=== PATIENT | male | born 1990 | race African-American/Black ===

== ENCOUNTER 2023-03-24 12:35 | Inpatient (IN) | payer OTHER ==
[~2023-03-24] VITALS: Ht 175.3 cm; Wt 73.2 kg
[2023-03-24 13:23] VITALS: BP 134/94; PULSE 76; RESP 15; TEMP 97.9; O2SAT 98
[2023-03-24 14:00] VITALS: BP 135/87; PULSE 68; RESP 15; TEMP 98; O2SAT 98
[2023-03-24] MEDS ORDERED: ONDANSETRON HCL 4 MG/2 ML VIAL IV PRN (15:15)
[2023-03-24 16:03] LABS: Basophils # (auto) 0 10 ^3/uL (0-0.2); Eosinophils # (auto) 0.1 10 ^3/uL (0-0.8); Hematocrit 40.8 % (41.0-53.0); Hemoglobin 13.7 g/dL (13.5-17.5); Lymphocytes # (auto) 1.2 10 ^3/uL (0.4-5.4); Lymphocytes % (auto) 25.6 % (10.0-50.0); Mean Corpuscular Hemoglobin 32.7 pg (28.0-32.0); Mean Corpuscular Hgb Conc. 33.5 g/dL (32.0-36.0); Mean Corpuscular Volume 97.8 fL (80.0-100.0); Monocytes # (auto) 0.3 10 ^3/uL (0-1.3); Monocytes % (auto) 6.7 % (0.0-12.0); Neutrophils # (auto) 3.1 10 ^3/uL (1.6-8.6); Neutrophils % (auto) 63.7 % (37.0-80.0); Nucleated Red Blood Cells % 0.1 %; Red Blood Cells 4.17 10^6/uL (4.5-5.90); Red Cell Distribution Width 12.7 % (11.8-14.3); White Blood Cell 4.8 10^3/uL (4.4-10.8)
[2023-03-24 16:19] LABS: Alanine Aminotransferase 17 U/L (7-40); Albumin 4.3 g/dL (3.2-4.8); Alkaline Phosphatase 95 U/L (46-116); Anion Gap 4.7 (5-15); Aspartate Aminotransferase 22 U/L (13-40); Blood Urea Nitrogen 10 mg/dL (9-23); Calcium 9.2 mg/dL (8.7-10.4); Carbon Dioxide 26.3 mmol/L (20-30); Chloride 105 mmol/L (98-107); Glucose 106 mg/dL (74-106); Potassium 3.9 mmol/L (3.5-5.1); Sodium 136 mmol/L (136-145)
[2023-03-24 16:20] LABS: Bilirubin, Total 0.6 mg/dL (0.2-1.0); Total Protein 7.5 g/dL (5.7-8.2)
[2023-03-24 16:32] LABS: INR 1.1 (0.9-1.15); Partial Thromboplastin Time 31.6 SEC (24.5-34.5); Prothrombin Time 11.5 sec (9.3-11.8)
[2023-03-24 16:34] VITALS: BP 135/87; PULSE 68; RESP 15; TEMP 97.9; O2SAT 98
[2023-03-24] MEDS: HYDROcodone-ACET 10/325MG TAB PO PRN (21:28)
[2023-03-24 22:00] VITALS: BP 134/88; PULSE 71; RESP 18; TEMP 98.4; O2SAT 95
[2023-03-24] MEDS: AMITRIPTYLINE HCL 25 MG TAB PO SCH (22:40)
[2023-03-25 05:00] VITALS: BP 141/89; PULSE 68; RESP 18; TEMP 97.7; O2SAT 97
[2023-03-25 05:33] LABS: Urine Bacteria FEW /hpf (None Seen); Urine Blood TRACE /uL (Negative); Urine Clarity HAZY (Clear); Urine Color Yellow (Yellow); Urine Mucus FEW (None Seen); Urine Protein, UAD TRACE (Negative); Urine Specific Gravity 1.022 (1.001-1.035); Urine Urobilinogen Normal (Negative); Urine WBC 186 /hpf (0 - 3); Urine WBC Clumps PRESENT /hpf (None Seen); Urine pH 6.5 (5.0-8.0)
[2023-03-25 08:00] VITALS: PULSE 70; RESP 18
[2023-03-25 09:00] VITALS: BP 120/78; PULSE 70; RESP 18; TEMP 97.9; O2SAT 98
[2023-03-25] MEDS ORDERED: GABAPENTIN 400 MG CAP PO ONE (09:45)
[2023-03-25] MEDS ORDERED: ACETAMINOPHEN IV 1000 MG/100ML (10MG/ML) IV ONE (09:45)
[2023-03-25] MEDS ORDERED: CELECOXIB 100 MG CAP PO ONE (09:45)
[2023-03-25] MEDS: ENOXAPARIN SOD 40 MG/0.4 ML SYRINGE SC SCH (10:00)
[2023-03-25] MEDS ORDERED: DexAMETHasone SOD PHOS 4 MG/1ML SDV INJ ONE (10:22)
[2023-03-25] MEDS ORDERED: EPINEPHrine HCL 1 MG/1 ML AMP ONE (10:22)
[2023-03-25] MEDS ORDERED: BUPIVACAINE 0.25% INJ 50ML VIAL ONE (10:22)
[2023-03-25] MEDS ORDERED: ceFAZolin 1GM/50ML 100 ML IV ONE (10:44)
[2023-03-25] MEDS ORDERED: GLYCOPYRROLATE 0.2 MG/ML 1ML VIAL ONE (10:49)
[2023-03-25] MEDS ORDERED: PROPOFOL 10 MG/ML 20 ML IV ONE (10:49)
[2023-03-25] MEDS ORDERED: ONDANSETRON HCL 4 MG/2 ML VIAL ONE (10:49)
[2023-03-25] MEDS ORDERED: KETOROLAC TROMETH 30 MG/ML 1ML VIAL ONE (10:50)
[2023-03-25] MEDS ORDERED: DexAMETHasone SOD PHOS 10MG/1ML VIAL INJ ONE (10:50)
[2023-03-25] MEDS ORDERED: LIDOCAINE 2% (LOCAL ANESTH.) PF 5ml SDV ONE (10:51)
[2023-03-25] MEDS ORDERED: BUPIVACAINE 0.5% P/F INJ 10 ML VIAL ONE (11:20)
[2023-03-25] MEDS ORDERED: fentaNYL CITRATE 100 MCG/2 ML VL ONE (11:28)
[2023-03-25 12:32] VITALS: O2SAT 100
[2023-03-25] MEDS ORDERED: HYDROmorphone HCL 2 MG/ML VL/or syr IV PRN (12:45)
[2023-03-25] MEDS ORDERED: FLUMAZENIL 0.1 MG/ML INJ 10ML MDV IV PRN (12:45)
[2023-03-25] MEDS ORDERED: hydrALAZINE HCL 20 MG/ML VL IV PRN (12:45)
[2023-03-25] MEDS ORDERED: LABETALOL HCL 5 MG/ML 4ML SYRINGE IV PRN (12:45)
[2023-03-25] MEDS ORDERED: NALOXONE HCL 0.4 MG/ML VIAL IV PRN (12:45)
[2023-03-25] MEDS ORDERED: ePHEDrine SULFATE 50 MG/ML AMP IV PRN (12:45)
[2023-03-25] MEDS ORDERED: oxyCODONE HCL 5MG TAB PO PRN (12:45)
[2023-03-25] MEDS ORDERED: fentaNYL CITRATE 100 MCG/2 ML VL IV PRN (12:45)
[2023-03-25] MEDS ORDERED: ONDANSETRON HCL 4 MG/2 ML VIAL IV PRN (12:45)
[2023-03-25] MEDS ORDERED: NITROGLYCERIN 0.4 MG SL TAB SL PRN (13:00)
[2023-03-25] MEDS: ceFAZolin 1GM/50ML 50 ML IV SCH ×2 (14:56→22:11)
[2023-03-25] MEDS: D5W/SOD CHL 0.45%/KCL 20MEQ 1,000 ML IV SCH ×2 (14:56→22:10)
[2023-03-25 16:51] VITALS: BP 147/88; PULSE 76; RESP 17; TEMP 97.7; O2SAT 96
[2023-03-25] MEDS: HYDROcodone-ACET 10/325MG TAB PO PRN (20:29)
[2023-03-25 22:00] VITALS: BP 124/70; PULSE 78; RESP 16; TEMP 97.9; O2SAT 92
[2023-03-25] MEDS: AMITRIPTYLINE HCL 25 MG TAB PO SCH (22:12)
[2023-03-26] MEDS: D5W/SOD CHL 0.45%/KCL 20MEQ 1,000 ML IV SCH ×4 (00:58→16:24)
[2023-03-26 05:00] VITALS: BP 125/65; PULSE 73; RESP 16; TEMP 97.5; O2SAT 94
[2023-03-26] MEDS: ceFAZolin 1GM/50ML 50 ML IV SCH ×2 (05:32→12:53)
[2023-03-26 08:44] VITALS: BP 122/75; PULSE 92; RESP 17; TEMP 98.1; O2SAT 98
[2023-03-26] MEDS: ENOXAPARIN SOD 40 MG/0.4 ML SYRINGE SC SCH (10:00)
[2023-03-26 12:36] VITALS: BP 124/71; PULSE 93; RESP 19; TEMP 98.2; O2SAT 100
[2023-03-26] MEDS: HYDROcodone-ACET 10/325MG TAB PO PRN (12:52)
[2023-03-26] MEDS ORDERED: CEPH500C PO (15:30)
[2023-03-26 16:41] VITALS: BP 116/63; PULSE 83; RESP 18; TEMP 98.4; O2SAT 95
== END 2023-03-26 16:00 | DRG 511 ==
LOC: UNDOADMIN 12:35 → EEVIPCON 12:35 → WEST WING 12:35
PROVIDERS: ADMIT Internal Medicine; ATTEND Orthopaedic Surgery
PROC: 0PSH04Z Reposition Right Radius with Internal Fixation Device, Open Approach (ICD-10-PCS; principal; 2023-03-25 11:28)
DX: S52.501A Unspecified fracture of the lower end of right radius, initial encounter for closed fracture (principal); N39.0 Urinary tract infection, site not specified; W18.39XA Other fall on same level, initial encounter; Z79.899 Other long term (current) drug therapy; Y93.67 Activity, basketball; Y92.89 Other specified places as the place of occurrence of the external cause; Y99.8 Other external cause status
CPT/HCPCS: 36415; 71045; 73100; 80053; 81001; 85025; 85610; 85730; 86850; 86900; 86901; G0378; J0131; J0171; J0690; J1100; J1885; J2001; J2405; J2704; J3490